=== PATIENT | female | born 1965 | race Two or more races ===

== ENCOUNTER 2018-08-29 22:10 | Emergency (ER) | payer MEDICAID ==
[~2018-08-29] VITALS: Ht 175.3 cm; Wt 64.0 kg
[2018-08-29] MEDS ORDERED: ACETAMINOPHEN 160 MG/5 ML UD CUP PO ONE (23:15)
[2018-08-29] MEDS ORDERED: ACETAMINOPHEN WITH CODEINE 300/30MG TABLET PO ONE (23:15)
[2018-08-29 23:45] VITALS: BP 114/69
[2018-08-29 23:50] LABS: CLARITY URINE CLEAR (CLEAR); COLOR URINE YELLOW (YELLOW); KETONES URINE NEGATIVE (NEGATIVE); LEUKOCYTE ESTERASE URINE NEGATIVE (NEGATIVE); NITRITE URINE NEGATIVE (NEGATIVE); OCCULT BLOOD URINE NEGATIVE (NEGATIVE); PH URINE 6.5 (4.5-8.0); PROTEIN URINE NEGATIVE (NEGATIVE)
[2018-08-30 01:46] LABS: BASOPHILS % 0.9 % (0.0-2.0); EOSINOPHILS % 2.8 % (0.0-5.0); HEMATOCRIT. 32.1 % (36.0-48.0); HEMOGLOBIN. 10.7 g/dL (12.0-16.0); LYMPHOCYTES % 44.4 % (20.0-50.0); MEAN CORPUSCULAR HEMOGLOBIN 30.6 pg (28.0-32.0); MEAN CORPUSCULAR VOLUME 91.7 fL (81.0-99.0); MEAN PLATELET VOLUME 7.7 fl (7.4-10.4); MONOCYTES % 9.2 % (2.0-8.0); NEUTROPHILS % 42.7 % (40.0-76.0); PLATELET 272 x1000/uL (130-400); RED CELL DISTRIBUTION WIDTH 15.6 % (11.6-14.6)
[2018-08-30 01:49] LABS: CHLORIDE 112 mEq/L (98-107)
== END 2018-08-30 04:30 | disposition left against medical advice (07) ==
LOC: ER 22:10
DX: M17.11 Unilateral primary osteoarthritis, right knee (principal); Z59.0 Homelessness
CPT/HCPCS: 36415; 71045; 73562; 81025; 83880; 84484; 93005; 93970; 99284

== ENCOUNTER 2018-09-11 03:35 | Emergency (ER) | payer MEDICAID | END 2018-09-11 06:03 | disposition left against medical advice (07) | LOC: ER 03:35 | DX: Z53.21 Procedure and treatment not carried out due to patient leaving prior to being seen by health care provider (principal) ==